=== PATIENT | female | born 1950 | race Caucasian/White ===

== ENCOUNTER 2020-08-20 20:57 | Inpatient (IN) | payer MEDICARE, OTHER ==
[~2020-08-20] VITALS: Ht 154.9 cm; Wt 104.6 kg
[2020-08-20] MEDS ORDERED: XANAX1 MG PO (23:15)
[2020-08-20] MEDS ORDERED: FOSAMAX70 MG PO (23:15)
[2020-08-20] MEDS ORDERED: HYDROCODON-ACE1 EAC6 PO (23:16)
[2020-08-20] MEDS ORDERED: NEURONTIN600 MG PO (23:16)
[2020-08-20] MEDS ORDERED: AMITRIPTYLINE H25 MG PO (23:17)
[2020-08-20] MEDS ORDERED: ATENOLOL50 MG PO (23:17)
[2020-08-20] MEDS ORDERED: ASPIRIN CHEWABL81 MG PO (23:17)
[2020-08-20] MEDS ORDERED: PHENERGAN 12.12.5 M1 PO (23:18)
[2020-08-20] MEDS ORDERED: CLARITIN10 M2 PO (23:18)
[2020-08-20] MEDS ORDERED: TIZANIDINE HCL4 MG PO (23:19)
[2020-08-20] MEDS ORDERED: LASIX20 MG PO (23:19)
[2020-08-21 12:02] LABS: RED BLOOD COUNT 4.44 M/UL (4.00-5.10); WHITE BLOOD COUNT 4.1 K/UL (4.5-11.0)
[2020-08-22 07:28] LABS: HEMOGLOBIN 12.6 gm/dl (12.3-15.3); RED BLOOD COUNT 4.31 M/UL (4.00-5.10)
[2020-08-22 07:29] LABS: WHITE BLOOD COUNT 5.9 K/UL (4.5-11.0)
[2020-08-23 04:15] LABS: HEMOGLOBIN 12.3 gm/dl (12.3-15.3); RED BLOOD COUNT 4.19 M/UL (4.00-5.10); WHITE BLOOD COUNT 4.7 K/UL (4.5-11.0)
[2020-08-23 13:09] LABS: BUN/CREATININE RATIO 25 (0-10)
[2020-08-24 06:03] LABS: HEMOGLOBIN 12.2 gm/dl (12.3-15.3); RED BLOOD COUNT 4.22 M/UL (4.00-5.10); WHITE BLOOD COUNT 5.1 K/UL (4.5-11.0)
[2020-08-24 07:25] LABS: BUN/CREATININE RATIO 23 (0-10)
[2020-08-25 07:29] LABS: HEMOGLOBIN 12.3 gm/dl (12.3-15.3); RED BLOOD COUNT 4.24 M/UL (4.00-5.10); WHITE BLOOD COUNT 5.2 K/UL (4.5-11.0)
[2020-08-25 07:52] LABS: BUN/CREATININE RATIO 23 (0-10)
[2020-08-26 03:53] LABS: HEMOGLOBIN 12.4 gm/dl (12.3-15.3); RED BLOOD COUNT 4.23 M/UL (4.00-5.10); WHITE BLOOD COUNT 5.3 K/UL (4.5-11.0)
[2020-08-26 04:03] LABS: BUN/CREATININE RATIO 31 (0-10)
[2020-08-27] MEDS ORDERED: HUMALOG 10100 UNITS/ SC (11:59)
[2020-08-27] MEDS ORDERED: HYSEPT473 ML EXT (11:59)
[2020-08-27] MEDS ORDERED: LEVOFLOXACIN500 MG PO (11:59)
[2020-08-27] MEDS ORDERED: LANTUS INS100 UTS/M1 SC (11:59)
[2020-08-27] MEDS ORDERED: DOXYCYCLINE HY100 M2 PO (11:59)
[2020-08-27] MEDS ORDERED: AMLODIPINE BESYL5 MG PO (11:59)
== END 2020-08-27 17:12 | disposition home health service (06) | DRG 193 ==
LOC: M/S 20:57
PROVIDERS: Internal Medicine; ADMIT Internal Medicine
DX: J18.9 Pneumonia, unspecified organism (principal); J96.01 Acute respiratory failure with hypoxia; G92 Toxic encephalopathy; L97.419 Non-pressure chronic ulcer of right heel and midfoot with unspecified severity; J98.11 Atelectasis; J90 Pleural effusion, not elsewhere classified; I50.30 Unspecified diastolic (congestive) heart failure; I11.0 Hypertensive heart disease with heart failure; Z20.828 Contact with and (suspected) exposure to other viral communicable diseases; M19.90 Unspecified osteoarthritis, unspecified site; I07.1 Rheumatic tricuspid insufficiency; I73.9 Peripheral vascular disease, unspecified; E66.01 Morbid (severe) obesity due to excess calories; I27.20 Pulmonary hypertension, unspecified; M81.0 Age-related osteoporosis without current pathological fracture; E11.65 Type 2 diabetes mellitus with hyperglycemia; E11.621 Type 2 diabetes mellitus with foot ulcer; Z79.899 Other long term (current) drug therapy; Z79.82 Long term (current) use of aspirin; Z79.4 Long term (current) use of insulin; Z86.73 Personal history of transient ischemic attack (TIA), and cerebral infarction without residual deficits; Z90.710 Acquired absence of both cervix and uterus; Z90.49 Acquired absence of other specified parts of digestive tract; Z79.891 Long term (current) use of opiate analgesic
CPT/HCPCS: ECHO; 36415; 36600; 70450; 71045; 71046; 71275; 73718; 80048; 80061; 82550; 82553; 82803; 82962; 83036; 83605; 84484; 85025; 85027; 85379; 85610; 85730; 87040; 93005; 93306; 93922; 93925; 93970; 94640; 94664; 94760; 97110-GP-CQ; 97162; 97165; 97530-GP-CQ; J0360; J0696; J1644; J1650; J1940; J1956; Q9967; U0002